=== PATIENT | female | born 1995 ===

== ENCOUNTER 2024-12-28 00:11 | Emergency (ER) | payer OTHER | END 2024-12-28 01:36 | disposition home or self-care (01) | LOC: DL.ED 00:11 | DX: J06.9 Acute upper respiratory infection, unspecified (principal); B97.89 Other viral agents as the cause of diseases classified elsewhere | CPT/HCPCS: 87081; 87428-QW; 87430; 99282; 99284 ==

== ENCOUNTER 2025-03-08 21:28 | Emergency (ER) | payer OTHER ==
[2025-03-08 22:00] LABS: BASOPHILS PERCENT AUTO 0.2 % (0.0-1.0); EOSINOPHILS PERCENT AUTO 0.4 % (1.0-3.0); HEMATOCRIT 42.1 % (37.0-47.0); LYMPHOCYTES PERCENT AUTO 22.5 % (20.5-50.1); MEAN CORPUSCULAR HGB CONC 33.3 g/dL (33.0-35.0); MEAN CORPUSCULAR VOLUME 93.1 fL (80-100); MONOCYTES PERCENT AUTO 10.6 % (2-8); NEUTROPHILS PERCENT AUTO 66.3 % (42.2-75.2); PLATELET COUNT,PLT 343 10^3/uL (150-450); RED BLOOD CELL COUNT 4.52 10^6/uL (4.2-5.4); WHITE BLOOD CELL COUNT,WBC 16.4 10^3/uL (5.0-10.0)
[2025-03-08 22:09] LABS: HCG QUALITATIVE,SERUM NEGATIVE (NEGATIVE)
[2025-03-08 22:16] LABS: A/G RATIO 1.1; ALANINE AMINOTRANSFERASE,ALT 64 U/L (14-59); ALBUMIN 4.2 g/dL (3.4-5.0); ALKALINE PHOSPHATASE 86 U/L (46-116); ANION GAP 11.7 mEq/L (7-13); ASPARTATE AMNIOTRANSFERASE,AST 23 U/L (15-37); BILIRUBIN TOTAL 0.8 mg/dL (0.2-1.0); BLOOD UREA NITROGEN,BUN 7 mg/dL (7-18); BUN/CREATININE RATIO 8.4 (No establ ref range); CALCIUM 9.4 mg/dL (8.5-10.1); CARBON DIOXIDE,CO2 27 mmol/L (21-32); CHLORIDE,CL 103 mmol/L (98-107); CREATININE 0.83 mg/dL (0.55-1.02); GLUCOSE RANDOM 108 mg/dL (70-99); POTASSIUM,K 3.7 mmol/L (3.5-5.1); PROTEIN TOTAL,TP 8.1 g/dL (6.4-8.2); SODIUM,NA 138 mmol/L (136-145)
[2025-03-08 22:17] LABS: ESTIMATED GFR 98 mL/min (>=60)
== END 2025-03-08 22:32 | disposition home or self-care (01) ==
LOC: DL.ED 21:28
DX: J06.9 Acute upper respiratory infection, unspecified (principal)
CPT/HCPCS: 36415; 80053; 84703; 85025; 87428-QW; 99282; 99284